=== PATIENT | female | born 1965 | race Caucasian/White ===

== ENCOUNTER → 2017-06-07 | Outpatient (CLI) | payer BC ==
[~2017-06-07] VITALS: Ht 160 cm; Wt 75.3 kg
[~2017-06-07] MED LIST: FLUOXETINE HCL20 M1 PO; HYDROCHLOROTH12.5 M3 PO; LEVOTHYROXINE75 MCG PO; MIRALAX119 GM PO
== END | disposition home or self-care (01) ==
LOC: AMB 08:44
PROC: 0DBP8ZX Excision of Rectum, Via Natural or Artificial Opening Endoscopic, Diagnostic (ICD-10-PCS; principal; 2017-06-07)
DX: Z12.11 Encounter for screening for malignant neoplasm of colon (principal); K62.1 Rectal polyp; Z86.010 Personal history of colon polyps; K59.09 Other constipation; R14.0 Abdominal distension (gaseous); K76.89 Other specified diseases of liver; I10 Essential (primary) hypertension; E03.9 Hypothyroidism, unspecified; Z80.49 Family history of malignant neoplasm of other genital organs; Z82.49 Family history of ischemic heart disease and other diseases of the circulatory system; Z83.3 Family history of diabetes mellitus
CPT/HCPCS: 88305; 93005; J2250